=== PATIENT | male | born 1970 | race Hispanic/Latino ===

== ENCOUNTER 2019-05-14 10:41 | Emergency (ER) | payer OTHER ==
[2019-05-14 11:21] LABS: WHITE BLOOD COUNT (AUTO) 5.2 K/uL (4.8-10.8)
[2019-05-14 11:22] LABS: EOSINOPHILS % (AUTO) 1.7 % (0.0-8.0); HEMATOCRIT 44.1 % (42-54); LYMPHOCYTES % (AUTO) 23.3 % (21.0-51.0); MEAN CORPUSCULAR HEMOGLOBIN 31.1 pg (27.0-33.0); MEAN CORPUSCULAR HGB CONC 34.9 g/dL (32.0-36.0); MEAN CORPUSCULAR VOLUME 89.2 fL (79-99); MONOCYTES % (AUTO) 7.4 % (3.0-13.0); NEUTROPHILS % (AUTO) 66.6 % (40.0-77.0); PLATELET COUNT (AUTO) 185 K/uL (130-400); RED BLOOD CELL COUNT(AUTO) 4.95 MIL/uL (4.50-6.20); RED CELL DISTRIBUTION WIDTH 13.3 % (11.0-15.5)
[2019-05-14] MEDS ORDERED: SODIUM CHLORIDE 0.9% 1000ML 1,000 ML IV ONE (11:24)
[2019-05-14 11:48] LABS: ALBUMIN 3.5 g/dL (3.5-5.0); BILIRUBIN,TOTAL 0.6 mg/dL (0.2-1.0); CREATININE 0.9 mg/dL (0.5-1.5); CRP QUANTITATIVE 6.5 mg/L (0.00-9.0); POTASSIUM 4.6 mmol/L (3.5-5.1); TOTAL PROTEIN, SERUM 7.3 g/dL (6.0-8.3)
[2019-05-14] MEDS ORDERED: INSULIN HUMULIN R 100 UNIT/ML 3ML ONE (12:24)
[2019-05-14 12:29] LABS: ERYTHROCYTE SEDIMENTATION RATE 9 MM/HR (0-15)
[2019-05-14 12:53] LABS: APPEARANCE,URINE Clear (CLEAR); BILIRUBIN,URINE Negative (NEGATIVE); COLOR,URINE Yellow (YELLOW); GLUCOSE, URINE (UA) >=1000 mg/dL (NEGATIVE); KETONES,URINE Negative (NEGATIVE); LEUKOCYTE ESTERASE ,URINE Negative (NEGATIVE); NITRATE,URINE Negative (NEGATIVE); OCCULT BLOOD,URINE Negative (NEGATIVE); PROTEIN,URINE Negative (NEGATIVE)
[2019-05-14 12:57] LABS: BACTERIA,URINE Rare /HPF (None Seen); RBC,URINE 0-1 /HPF (0-1); SQUAMOUS EPITHELIAL CELL,UR Rare /HPF (0-2); WBC,URINE 0-1 /HPF (0-1)
[2019-05-14] MEDS ORDERED: CLINDAMYCIN 600 MG/D5% WATER 50 ML IV ONE (13:06)
[2019-05-14] MEDS ORDERED: SODIUM CHLORIDE 0.9% 50 ML IV ONE (13:06)
[2019-05-14] MEDS ORDERED: CEFTRIAXONE SODIUM 1 GM ONE (13:06)
== END 2019-05-14 14:55 | disposition home or self-care (01) ==
LOC: EDH 10:41
DX: L03.116 Cellulitis of left lower limb (principal); E13.65 Other specified diabetes mellitus with hyperglycemia; I10 Essential (primary) hypertension; E78.00 Pure hypercholesterolemia, unspecified; Z87.891 Personal history of nicotine dependence
CPT/HCPCS: 36415; 73660; 80053; 81001; 82010; 82948 ×3; 85025; 85651; 86140; 87040 ×2; 96361; 96365; 96375; 99285; J0696; J1815; J3490; J7030

== ENCOUNTER 2022-01-07 19:31 | Inpatient (IN) | payer OTHER ==
[~2022-01-07] VITALS: Ht 182.9 cm; Wt 118.3 kg
[2022-01-07] MEDS ORDERED: 0.9%NACL 1000ML 1,000 ML IV ONE (20:00)
[2022-01-07] MEDS ORDERED: VANCOMYCIN 1G VIAL IVPB ONE (20:00)
[2022-01-07] MEDS ORDERED: ZOSYN 3.375GM +NS 50ML IV SCH (20:00)
[2022-01-07] MEDS ORDERED: VANCOMYCIN 1G/250ML KIT 250 ML IV ONE (20:22)
[2022-01-07 20:26] LABS: BASOPHILS % (AUTO) 0.5 % (0.0-5.0); EOSINOPHILS % (AUTO) 0.9 % (0.0-8.0); LYMPHOCYTES % (AUTO) 20.4 % (21.0-51.0); MEAN CORPUSCULAR HEMOGLOBIN 29.1 pg (27.0-33.0); MEAN CORPUSCULAR HGB CONC 35.1 g/dL (32.0-36.0); NEUTROPHILS % (AUTO) 67.8 % (40.0-77.0); PLATELET COUNT (AUTO) 195 K/uL (130-400); WHITE BLOOD COUNT (AUTO) 10.2 K/uL (4.8-10.8)
[2022-01-07 20:40] LABS: CREATININE 0.9 mg/dL (0.5-1.5); POTASSIUM 3.7 mmol/L (3.5-5.1)
[2022-01-07 20:44] LABS: ALBUMIN 3.2 g/dL (3.5-5.0); BILIRUBIN,TOTAL 1.1 mg/dL (0.2-1.0); CRP QUANTITATIVE 116.5 mg/L (0.00-9.0); TOTAL PROTEIN, SERUM 7.1 g/dL (6.0-8.3)
[2022-01-07 21:47] LABS: ERYTHROCYTE SEDIMENTATION RATE 28 MM/HR (0-20)
[2022-01-07] MEDS ORDERED: ATOR10 PO (22:22)
[2022-01-07] MEDS ORDERED: LISI1TAB53 PO (22:22)
[2022-01-07] MEDS ORDERED: METF-446 PO (22:22)
[2022-01-07] MEDS ORDERED: GEMF600T89 PO (22:22)
[2022-01-07] MEDS ORDERED: INSU3INS5 SQ (22:22)
[2022-01-07] MEDS ORDERED: SITA50TA PO (22:22)
[2022-01-07] MEDS ORDERED: MAG/ALUM/SIMETH 30 ML UDCUP PO PRN (23:00)
[2022-01-07] MEDS ORDERED: VANCOMYCIN PROTOCOL PER PHARMACY IV PRN (23:00)
[2022-01-07] MEDS ORDERED: LACTULOSE 20 GM/30 ML UDCUP PO PRN (23:00)
[2022-01-07] MEDS ORDERED: MORPHINE 4 MG SYG IV PRN (23:00)
[2022-01-07] MEDS ORDERED: ACETAMINOPHEN WITH CODEINE 1 TAB TAB PO PRN (23:00)
[2022-01-07] MEDS ORDERED: DIPHENHYDRAMINE HCL 25 MG CAPSULE PO PRN (23:00)
[2022-01-07] MEDS ORDERED: ONDANSETRON 4MG INJ IV PRN (23:00)
[2022-01-07] MEDS ORDERED: DEXTROSE 50%-WATER 50 ML DISP.SYRIN IV PRN (23:00)
[2022-01-07] MEDS ORDERED: GLUCAGON 1MG KIT 1 MG ML IM PRN (23:00)
[2022-01-07] MEDS ORDERED: ACETAMINOPHEN 325 MG TAB PO PRN (23:00)
[2022-01-07] MEDS ORDERED: NITROGLYCERIN 0.4 MG SL TAB SL PRN (23:00)
[2022-01-07] MEDS: 0.9%NACL 1000ML 1,000 ML IV SCH (23:15)
[2022-01-07 23:17] LABS: HEMOGLOBIN A1C 12.4 % (4.0-6.0)
[2022-01-07 23:40] LABS: THYROID STIMULATING HORMONE 5.16 uIU/mL (0.36-3.74)
[2022-01-08 02:30] VITALS: BP 115/86
[2022-01-08 04:00] VITALS: BP 114/68
[2022-01-08] MEDS: INSULIN HUMULIN R 100 UNIT/ML 3ML SQ SCH ×4 (06:09→22:58)
[2022-01-08 07:30] VITALS: BP 121/72
[2022-01-08] MEDS ORDERED: COMPOUND IV REFRIGERATED 1 EACH IVSOLN MISC PRN (07:30)
[2022-01-08] MEDS: LISINOPRIL 20 MG TABLET PO SCH (08:37)
[2022-01-08] MEDS: LINAGLIPTIN 5 MG TABLET PO SCH (08:37)
[2022-01-08] MEDS: FAMOTIDINE 20MG VIAL IV SCH ×2 (08:37→20:42)
[2022-01-08] MEDS: HYDROCHLOROTHIAZIDE 25 MG TABLET PO SCH (08:37)
[2022-01-08] MEDS: ENOXAPARIN SODIUM 40 MG/0.4 ML SYRINGE SQ SCH (08:38)
[2022-01-08] MEDS: METFORMIN HCL 500 MG TABLET PO SCH ×2 (08:38→17:51)
[2022-01-08] MEDS ORDERED: NON-FORMULARY MEDICATION 1 EACH (Lisinopril/Hydrochlorothiazide (Lisinopril-Hctz 20-25 mg PO SCH (09:00)
[2022-01-08] MEDS: VANCOMYCIN 1.5GM/NS 250ML IV SCH ×4 (09:06→20:42)
[2022-01-08] MEDS: GEMFIBROZIL 600 MG TABLET PO SCH ×2 (09:06→20:42)
[2022-01-08 11:10] VITALS: BP 141/72
[2022-01-08] MEDS: ZOSYN 3.375GM+NS 50ML 50 ML IV SCH ×2 (12:20→22:54)
[2022-01-08 15:10] VITALS: BP 142/87
[2022-01-08] MEDS ORDERED: GADOTERATE MEGLUMINE 10 MMOL/20 ML VIAL IV ONE (18:09)
[2022-01-08 20:00] VITALS: BP 158/88
[2022-01-08] MEDS ORDERED: ATORVASTATIN 10 MG TABLET PO SCH (21:00)
[2022-01-08] MEDS: 0.9%NACL 1000ML 1,000 ML IV SCH (22:54)
[2022-01-09] VITALS: BP 113/61
[2022-01-09 04:00] VITALS: BP 121/69
[2022-01-09] MEDS: ZOSYN 3.375GM+NS 50ML 50 ML IV SCH ×3 (05:31→21:33)
[2022-01-09] MEDS: INSULIN HUMULIN R 100 UNIT/ML 3ML SQ SCH ×5 (06:20→21:45)
[2022-01-09 07:05] VITALS: BP 126/73
[2022-01-09] MEDS: LISINOPRIL 20 MG TABLET PO SCH (08:11)
[2022-01-09] MEDS: HYDROCHLOROTHIAZIDE 25 MG TABLET PO SCH (08:11)
[2022-01-09] MEDS: METFORMIN HCL 500 MG TABLET PO SCH (08:11)
[2022-01-09] MEDS: LINAGLIPTIN 5 MG TABLET PO SCH (08:11)
[2022-01-09] MEDS: FAMOTIDINE 20MG VIAL IV SCH ×2 (08:11→21:34)
[2022-01-09] MEDS: VANCOMYCIN 1.5GM/NS 250ML IV SCH ×4 (08:12→21:46)
[2022-01-09] MEDS: ENOXAPARIN SODIUM 40 MG/0.4 ML SYRINGE SQ SCH (08:12)
[2022-01-09] MEDS: GEMFIBROZIL 600 MG TABLET PO SCH ×2 (08:26→21:34)
[2022-01-09 10:02] LABS: BASOPHILS % (AUTO) 0.6 % (0.0-5.0); EOSINOPHILS % (AUTO) 1.5 % (0.0-8.0); HEMATOCRIT 37.1 % (42-54); LYMPHOCYTES % (AUTO) 15.3 % (21.0-51.0); MEAN CORPUSCULAR HEMOGLOBIN 29.6 pg (27.0-33.0); MEAN CORPUSCULAR HGB CONC 34.5 g/dL (32.0-36.0); MEAN CORPUSCULAR VOLUME 85.9 fL (79-99); MONOCYTES % (AUTO) 9.9 % (3.0-13.0); NEUTROPHILS % (AUTO) 72.4 % (40.0-77.0); PLATELET COUNT (AUTO) 169 K/uL (130-400); RED BLOOD CELL COUNT(AUTO) 4.32 MIL/uL (4.50-6.20); RED CELL DISTRIBUTION WIDTH 11.9 % (11.0-15.5); WHITE BLOOD COUNT (AUTO) 6.8 K/uL (4.8-10.8)
[2022-01-09 10:09] LABS: CREATININE 0.8 mg/dL (0.5-1.5); CRP QUANTITATIVE 66.6 mg/L (0.00-9.0)
[2022-01-09 10:55] VITALS: BP 142/88
[2022-01-09 11:06] LABS: ERYTHROCYTE SEDIMENTATION RATE 55 MM/HR (0-20)
[2022-01-09] MEDS ORDERED: INSULIN GLARGINE 100 UNITS/ML 10 ML VIAL SQ ONE (13:30)
[2022-01-09] MEDS ORDERED: ASPIRIN 81 MG EC TAB PO ONE (13:30)
[2022-01-09 15:00] VITALS: BP 137/80
[2022-01-09 20:00] VITALS: BP 125/73
[2022-01-09] MEDS: ATORVASTATIN 10 MG TABLET PO SCH (21:34)
[2022-01-10] VITALS (7 sets, daily range): BP systolic 120–157; BP diastolic 66–91
[2022-01-10] MEDS: INSULIN HUMULIN R 100 UNIT/ML 3ML SQ SCH ×7 (06:21→21:50)
[2022-01-10] MEDS: VANCOMYCIN 1.5GM/NS 250ML IV SCH ×6 (06:24→20:55)
[2022-01-10] MEDS: ZOSYN 3.375GM+NS 50ML 50 ML IV SCH ×3 (06:24→21:45)
[2022-01-10] MEDS: 0.9%NACL 1000ML 1,000 ML IV SCH ×2 (06:25→17:39)
[2022-01-10 08:24] LABS: CREATININE 0.7 mg/dL (0.5-1.5); POTASSIUM 3.9 mmol/L (3.5-5.1)
[2022-01-10] MEDS: ENOXAPARIN SODIUM 40 MG/0.4 ML SYRINGE SQ SCH (09:04)
[2022-01-10] MEDS: FAMOTIDINE 20MG VIAL IV SCH ×2 (09:04→20:44)
[2022-01-10] MEDS ORDERED: IOHEXOL 350 MG/ML 100ML INFUS..BTL IV ONE (09:32)
[2022-01-10] MEDS ORDERED: IOHEXOL-350 75 ML VIAL IV ONE (10:30)
[2022-01-10] MEDS ORDERED: IOHEXOL-350 50ML VIAL IV ONE (10:31)
[2022-01-10] MEDS: HYDROCHLOROTHIAZIDE 25 MG TABLET PO SCH (11:03)
[2022-01-10] MEDS: LINAGLIPTIN 5 MG TABLET PO SCH (11:04)
[2022-01-10] MEDS: ASPIRIN 81 MG EC TAB PO SCH (11:04)
[2022-01-10] MEDS: LISINOPRIL 20 MG TABLET PO SCH (11:05)
[2022-01-10] MEDS: GEMFIBROZIL 600 MG TABLET PO SCH ×2 (11:05→20:44)
[2022-01-10] MEDS: ATORVASTATIN 10 MG TABLET PO SCH (20:45)
[2022-01-11] VITALS (12 sets, daily range): BP systolic 121–157; BP diastolic 76–100
[2022-01-11] MEDS: ZOSYN 3.375GM+NS 50ML 50 ML IV SCH ×3 (04:45→20:35)
[2022-01-11] MEDS: VANCOMYCIN 1.5GM/NS 250ML IV SCH ×6 (04:47→20:34)
[2022-01-11] MEDS: INSULIN HUMULIN R 100 UNIT/ML 3ML SQ SCH ×7 (06:51→20:50)
[2022-01-11 07:13] LABS: BASOPHILS % (AUTO) 0.7 % (0.0-5.0); HEMATOCRIT 37.2 % (42-54); LYMPHOCYTES % (AUTO) 19.3 % (21.0-51.0); MEAN CORPUSCULAR HEMOGLOBIN 29.2 pg (27.0-33.0); MEAN CORPUSCULAR HGB CONC 34.4 g/dL (32.0-36.0); MEAN CORPUSCULAR VOLUME 84.7 fL (79-99); MONOCYTES % (AUTO) 13.7 % (3.0-13.0); NEUTROPHILS % (AUTO) 63.9 % (40.0-77.0); PLATELET COUNT (AUTO) 188 K/uL (130-400); RED BLOOD CELL COUNT(AUTO) 4.39 MIL/uL (4.50-6.20); RED CELL DISTRIBUTION WIDTH 11.9 % (11.0-15.5); WHITE BLOOD COUNT (AUTO) 5.6 K/uL (4.8-10.8)
[2022-01-11 07:20] LABS: CREATININE 0.7 mg/dL (0.5-1.5); POTASSIUM 3.7 mmol/L (3.5-5.1)
[2022-01-11] MEDS ORDERED: IOHEXOL 350 MG/ML 100ML INFUS..BTL IV ONE (09:44)
[2022-01-11] MEDS ORDERED: MIDAZOLAM HCL 1 MG/ML 2ML VIAL ONE (09:45)
[2022-01-11] MEDS ORDERED: FENTANYL CITRATE PF 50 MCG/1 ML 2ML VIAL ONE (09:45)
[2022-01-11] MEDS ORDERED: IODIXANOL 320 MG/ML 100 ML VIAL ONE (09:46)
[2022-01-11] MEDS ORDERED: NITROGLYCERIN 50MG VIAL ONE (09:56)
[2022-01-11] MEDS ORDERED: HEPARIN 10,000 UNIT/10ML (1,000 UNIT/ML) VIAL ONE (10:39)
[2022-01-11] MEDS ORDERED: SODIUM BICARB 50MEQ 50ML VIAL 50 ML ONE (10:42)
[2022-01-11] MEDS ORDERED: 0.9%NACL 1000ML 1,000 ML IV SCH (11:30)
[2022-01-11] MEDS: LINAGLIPTIN 5 MG TABLET PO SCH (13:29)
[2022-01-11] MEDS: GEMFIBROZIL 600 MG TABLET PO SCH ×2 (13:30→20:35)
[2022-01-11] MEDS: LISINOPRIL 20 MG TABLET PO SCH (13:30)
[2022-01-11] MEDS: HYDROCHLOROTHIAZIDE 25 MG TABLET PO SCH (13:30)
[2022-01-11] MEDS: ASPIRIN 81 MG EC TAB PO SCH (13:30)
[2022-01-11] MEDS: FAMOTIDINE 20MG VIAL IV SCH ×2 (13:32→20:34)
[2022-01-11] MEDS: ENOXAPARIN SODIUM 40 MG/0.4 ML SYRINGE SQ SCH (13:34)
[2022-01-11] MEDS: ATORVASTATIN 10 MG TABLET PO SCH (20:35)
[2022-01-12] VITALS: BP 144/81
[2022-01-12 04:00] VITALS: BP 123/66
[2022-01-12] MEDS: VANCOMYCIN 1.5GM/NS 250ML IV SCH ×4 (05:30→12:08)
[2022-01-12] MEDS: ZOSYN 3.375GM+NS 50ML 50 ML IV SCH ×3 (05:30→21:31)
[2022-01-12] MEDS: INSULIN HUMULIN R 100 UNIT/ML 3ML SQ SCH ×7 (05:55→21:42)
[2022-01-12 08:00] VITALS: BP 129/76
[2022-01-12] MEDS: LINAGLIPTIN 5 MG TABLET PO SCH (08:10)
[2022-01-12] MEDS: ASPIRIN 81 MG EC TAB PO SCH (08:10)
[2022-01-12] MEDS: HYDROCHLOROTHIAZIDE 25 MG TABLET PO SCH (08:10)
[2022-01-12] MEDS: LISINOPRIL 20 MG TABLET PO SCH (08:10)
[2022-01-12] MEDS: FAMOTIDINE 20MG VIAL IV SCH ×2 (08:11→21:31)
[2022-01-12] MEDS: ENOXAPARIN SODIUM 40 MG/0.4 ML SYRINGE SQ SCH (08:16)
[2022-01-12] MEDS: GEMFIBROZIL 600 MG TABLET PO SCH ×2 (09:19→21:30)
[2022-01-12 12:00] VITALS: BP 133/91
[2022-01-12 16:00] VITALS: BP 130/87
[2022-01-12 18:28] LABS: APPEARANCE,URINE CLEAR (CLEAR); BILIRUBIN,URINE SMALL (NEGATIVE); COLOR,URINE YELLOW (YELLOW); GLUCOSE, URINE (UA) >=1000 mg/dL (NEGATIVE); KETONES,URINE 5 mg/dL (NEGATIVE); LEUKOCYTE ESTERASE ,URINE NEGATIVE (NEGATIVE); NITRATE,URINE NEGATIVE (NEGATIVE); OCCULT BLOOD,URINE TRACE-LYSED (NEGATIVE); PH,URINE 6.5 (5.0-8.0); PROTEIN,URINE 100 mg/dL (NEGATIVE)
[2022-01-12 18:43] LABS: BACTERIA,URINE Rare /HPF (None Seen); RBC,URINE 0-1 /HPF (0-1); SQUAMOUS EPITHELIAL CELL,UR None Seen /HPF (0-2); WBC,URINE 0-1 /HPF (0-1)
[2022-01-12 20:00] VITALS: BP 146/87
[2022-01-12] MEDS: ATORVASTATIN 10 MG TABLET PO SCH (21:30)
[2022-01-12] MEDS: INSULIN GLARGINE 100 UNITS/ML 10 ML VIAL SQ SCH (21:44)
[2022-01-13] VITALS (10 sets, daily range): BP systolic 113–175; BP diastolic 58–100
[2022-01-13] MEDS: ZOSYN 3.375GM+NS 50ML 50 ML IV SCH ×2 (05:10→13:28)
[2022-01-13 05:14] LABS: BASOPHILS % (AUTO) 0.5 % (0.0-5.0); EOSINOPHILS % (AUTO) 2.4 % (0.0-8.0); HEMATOCRIT 38.5 % (42-54); LYMPHOCYTES % (AUTO) 18.1 % (21.0-51.0); MEAN CORPUSCULAR HEMOGLOBIN 28.6 pg (27.0-33.0); MEAN CORPUSCULAR HGB CONC 33.8 g/dL (32.0-36.0); MEAN CORPUSCULAR VOLUME 84.8 fL (79-99); MONOCYTES % (AUTO) 12.2 % (3.0-13.0); NEUTROPHILS % (AUTO) 66.3 % (40.0-77.0); PLATELET COUNT (AUTO) 253 K/uL (130-400); RED BLOOD CELL COUNT(AUTO) 4.54 MIL/uL (4.50-6.20); RED CELL DISTRIBUTION WIDTH 11.7 % (11.0-15.5); WHITE BLOOD COUNT (AUTO) 8.3 K/uL (4.8-10.8)
[2022-01-13] MEDS: INSULIN HUMULIN R 100 UNIT/ML 3ML SQ SCH ×7 (05:24→21:52)
[2022-01-13 05:33] LABS: CREATININE 1.1 mg/dL (0.5-1.5); CRP QUANTITATIVE 61.4 mg/L (0.00-9.0); POTASSIUM 3.5 mmol/L (3.5-5.1)
[2022-01-13] MEDS ORDERED: LIDOCAINE HCL 1% MDV 50ML VIAL ONE (05:56)
[2022-01-13] MEDS ORDERED: BUPIVACAINE/PF 0.5% 30ML VIAL ONE (05:56)
[2022-01-13 06:32] LABS: ERYTHROCYTE SEDIMENTATION RATE 70 MM/HR (0-20)
[2022-01-13] MEDS ORDERED: MIDAZOLAM HCL 1 MG/ML 2ML VIAL ONE (06:33)
[2022-01-13] MEDS ORDERED: PROPOFOL 10 MG/ML 20ML VIAL IV ONE (06:33)
[2022-01-13] MEDS ORDERED: FENTANYL CITRATE PF 50 MCG/1 ML 2ML VIAL ONE (06:33)
[2022-01-13] MEDS: ENOXAPARIN SODIUM 40 MG/0.4 ML SYRINGE SQ SCH (09:00)
[2022-01-13] MEDS: ASPIRIN 81 MG EC TAB PO SCH (09:19)
[2022-01-13] MEDS: LISINOPRIL 20 MG TABLET PO SCH (09:19)
[2022-01-13] MEDS: LINAGLIPTIN 5 MG TABLET PO SCH (09:19)
[2022-01-13] MEDS: GEMFIBROZIL 600 MG TABLET PO SCH ×2 (09:19→21:55)
[2022-01-13] MEDS: HYDROCHLOROTHIAZIDE 25 MG TABLET PO SCH (09:19)
[2022-01-13] MEDS: FAMOTIDINE 20MG VIAL IV SCH ×2 (09:19→21:56)
[2022-01-13] MEDS: GABAPENTIN 300 MG CAPSULE PO SCH ×2 (11:28→21:55)
[2022-01-13] MEDS: INSULIN GLARGINE 100 UNITS/ML 10 ML VIAL SQ SCH (21:52)
[2022-01-13] MEDS: ATORVASTATIN 10 MG TABLET PO SCH (21:55)
[2022-01-13] MEDS: GUAIFENESIN-DM 200/20 MG 10 ML PO PRN (22:06)
[2022-01-14 03:42] VITALS: BP 97/62
[2022-01-14 05:17] LABS: BASOPHILS % (AUTO) 0.8 % (0.0-5.0); EOSINOPHILS % (AUTO) 3.5 % (0.0-8.0); LYMPHOCYTES % (AUTO) 20.2 % (21.0-51.0); MEAN CORPUSCULAR HEMOGLOBIN 28.9 pg (27.0-33.0); MEAN CORPUSCULAR HGB CONC 33.8 g/dL (32.0-36.0); MEAN CORPUSCULAR VOLUME 85.5 fL (79-99); MONOCYTES % (AUTO) 15.4 % (3.0-13.0); NEUTROPHILS % (AUTO) 59.9 % (40.0-77.0); PLATELET COUNT (AUTO) 228 K/uL (130-400); RED BLOOD CELL COUNT(AUTO) 4.56 MIL/uL (4.50-6.20); RED CELL DISTRIBUTION WIDTH 11.7 % (11.0-15.5); WHITE BLOOD COUNT (AUTO) 6.4 K/uL (4.8-10.8)
[2022-01-14 05:24] LABS: CREATININE 0.7 mg/dL (0.5-1.5); POTASSIUM 3.8 mmol/L (3.5-5.1)
[2022-01-14] MEDS: INSULIN HUMULIN R 100 UNIT/ML 3ML SQ SCH ×4 (06:57→12:30)
[2022-01-14 07:00] VITALS: BP 123/80
[2022-01-14] MEDS ORDERED: AEC81 PO (07:25)
[2022-01-14] MEDS ORDERED: LEVOFLOXACIN 750 MG TABLET PO SCH (09:00)
[2022-01-14] MEDS: FAMOTIDINE 20MG VIAL IV SCH (09:42)
[2022-01-14] MEDS: HYDROCHLOROTHIAZIDE 25 MG TABLET PO SCH (09:42)
[2022-01-14] MEDS: GEMFIBROZIL 600 MG TABLET PO SCH (09:42)
[2022-01-14] MEDS: ASPIRIN 81 MG EC TAB PO SCH (09:42)
[2022-01-14] MEDS: GABAPENTIN 300 MG CAPSULE PO SCH (09:42)
[2022-01-14] MEDS: ENOXAPARIN SODIUM 40 MG/0.4 ML SYRINGE SQ SCH (09:43)
[2022-01-14] MEDS: LISINOPRIL 20 MG TABLET PO SCH (09:43)
[2022-01-14] MEDS: LINAGLIPTIN 5 MG TABLET PO SCH (09:49)
[2022-01-14] MEDS: GUAIFENESIN-DM 200/20 MG 10 ML PO PRN (09:53)
[2022-01-14] MEDS ORDERED: INSU100V3 SQ (10:12)
[2022-01-14] MEDS ORDERED: LISI20TA24 PO (10:12)
[2022-01-14] MEDS ORDERED: INSLAN SQ (10:12)
[2022-01-14] MEDS ORDERED: SYRI-1628 MC (10:12)
[2022-01-14] MEDS ORDERED: LEVO750T46 PO (10:12)
[2022-01-14] MEDS ORDERED: GABA300C PO (10:12)
[2022-01-14] MEDS ORDERED: ATOR10 PO (10:12)
[2022-01-14 11:00] VITALS: BP 129/88
[2022-01-14] MEDS ORDERED: INSULIN GLARGINE 100 UNITS/ML 10 ML VIAL SQ SCH (21:00)
== END 2022-01-14 12:49 | disposition home or self-care (01) | DRG 617 ==
LOC: EDH 19:31 → EDHIP 19:32 → 3DH 01-08 02:08
PROVIDERS: ADMIT Internal Medicine; ATTEND Internal Medicine
PROC: B4101ZZ Fluoroscopy of Abdominal Aorta using Low Osmolar Contrast (ICD-10-PCS; 2022-01-11)
PROC: B41F1ZZ Fluoroscopy of Right Lower Extremity Arteries using Low Osmolar Contrast (ICD-10-PCS; 2022-01-11)
PROC: 0Y6V0Z0 Detachment at Right 4th Toe, Complete, Open Approach (ICD-10-PCS; principal; 2022-01-13 07:00)
DX: E11.69 Type 2 diabetes mellitus with other specified complication (principal); L03.115 Cellulitis of right lower limb; E11.52 Type 2 diabetes mellitus with diabetic peripheral angiopathy with gangrene; M86.8X7 Other osteomyelitis, ankle and foot; E11.621 Type 2 diabetes mellitus with foot ulcer; L97.519 Non-pressure chronic ulcer of other part of right foot with unspecified severity; E78.5 Hyperlipidemia, unspecified; I10 Essential (primary) hypertension; E11.42 Type 2 diabetes mellitus with diabetic polyneuropathy; E66.01 Morbid (severe) obesity due to excess calories; E78.00 Pure hypercholesterolemia, unspecified; Z68.35 Body mass index [BMI] 35.0-35.9, adult; Z87.891 Personal history of nicotine dependence
CPT/HCPCS: 36247; 36415; 73660; 73720; 75635; 75710; 75716; 80048; 80053; 80202; 81001; 82010; 82948; 83036; 83605; 84145; 84443; 85025; 85651; 86140; 87040; 87070; 87076; 87077; 87186; 93925; 93971; 97039; 99156; 99157; C1760; C1894; G0378; J1644; J1650; J1815; J2250; J2543; J2704; J3010; J3370; J3490; J7030; J7050; Q0163; Q9967

== ENCOUNTER → 2022-01-20 | Outpatient (CLI) | payer OTHER, SELFPAY ==
[~2022-01-20] MED LIST: AEC81 PO; ATOR10 PO; GABA300C PO; GEMF600T89 PO; INSLAN SQ; INSU100V3 SQ; LEVO750T46 PO; LISI1TAB53 PO; LISI20TA24 PO; METF-446 PO; SITA50TA PO; SYRI-1628 MC
== END | disposition home or self-care (01) ==
LOC: WHH 09:57
PROVIDERS: ATTEND Podiatrist Foot & Ankle Surgery
DX: T87.89 Other complications of amputation stump (principal); E11.621 Type 2 diabetes mellitus with foot ulcer; L97.512 Non-pressure chronic ulcer of other part of right foot with fat layer exposed; E11.52 Type 2 diabetes mellitus with diabetic peripheral angiopathy with gangrene; I96 Gangrene, not elsewhere classified; E11.69 Type 2 diabetes mellitus with other specified complication; M86.8X7 Other osteomyelitis, ankle and foot; E11.42 Type 2 diabetes mellitus with diabetic polyneuropathy; I10 Essential (primary) hypertension; E78.5 Hyperlipidemia, unspecified; E78.00 Pure hypercholesterolemia, unspecified; E66.01 Morbid (severe) obesity due to excess calories; Z68.33 Body mass index [BMI] 33.0-33.9, adult; Z87.891 Personal history of nicotine dependence; Z79.84 Long term (current) use of oral hypoglycemic drugs; Z79.899 Other long term (current) drug therapy; Y83.5 Amputation of limb(s) as the cause of abnormal reaction of the patient, or of later complication, without mention of misadventure at the time of the procedure; Y92.238 Other place in hospital as the place of occurrence of the external cause
CPT/HCPCS: 99215; A4450; A6209; G0463

== ENCOUNTER 2022-03-15 17:58 | Emergency (ER) | payer OTHER, SELFPAY ==
[~2022-03-15] VITALS: Ht 182.9 cm; Wt 113.4 kg
[2022-03-15 18:03] VITALS: BP 116/73
[2022-03-15] MEDS ORDERED: BACITRACIN 28.4 GM OINT TP ONE (20:00)
[2022-03-15] MEDS ORDERED: CEFTRIAXONE 1G VIAL IM ONE (20:00)
[2022-03-15] MEDS ORDERED: CEFTRIAXONE 1G VIAL ONE (20:19)
[2022-03-15] MEDS ORDERED: CLIN-141 PO (20:43)
[2022-03-15] MEDS ORDERED: TETANUS/DIPHTHERIA TOXOID [ADULT] 0.5 ML VIAL IM ONE ×2 (20:53→21:30)
== END 2022-03-15 21:12 | disposition home or self-care (01) ==
LOC: EDH 17:58
DX: E11.621 Type 2 diabetes mellitus with foot ulcer (principal); E78.00 Pure hypercholesterolemia, unspecified; Z79.82 Long term (current) use of aspirin; Z79.84 Long term (current) use of oral hypoglycemic drugs; Z79.899 Other long term (current) drug therapy
CPT/HCPCS: 73620; 90471; 90714; 96372; 99284; J0696

== ENCOUNTER 2025-07-25 09:34 | Emergency (ER) | payer SELFPAY ==
[~2025-07-25] VITALS: Ht 182.9 cm; Wt 127.0 kg
[~2025-07-25 09:34] MED LIST changes: +AMOX500C2 PO; -ATOR10 PO; +ATOR20TA65 PO; -GABA300C PO; -LEVO750T46 PO; -LISI20TA24 PO
--- NOTE | 2025-07-25 09:47 | ERN ---
General Chief Complaint: Nausea,Vomiting,Diarrhea Stated Complaint: NAUSEA/VOMITING/DIZZY Time Seen by MD: 09:37 Source: patient History of Present Illness Initial Comments Patient is a 64-year-old gentleman coming in complaining of abdominal pain. Jaxon bravo states that he has been evaluated by ultrasound was recommended and performed. He states the the some abnormality ultrasound. So states that a couple of the has a started presenting with increased abdominal pain nauseousness and vomiting. In his is a states that every time he eats he vomits. Allergies: Coded Allergies: No Known Drug Allergies (Verified Allergy, 01/02/14) Home Meds Active Scripts Syringe-Needle,Insulin,0.5 ml ([place] Insulin Syringe) 1 Each Disp.syrin, EACH MC QID, #1000 3 Refills Prov:MAGDALENA JALLOH Jr., MD 04/21/22 Insulin Regular, Human (Humulin R) 100 Unit/1 Ml Vial, 16 UNIT SQ TIDAC for 30 Days, #30 VIAL 6 Refills Prov:MAGDALENA JALLOH Jr., MD 04/21/22 Insulin Glargine,Hum.rec.anlog (Lantus) 100 Units/Ml Inj, 30 UNITS SQ HS for 30 Days, #30 DAYS 6 Refills Prov:MAGDALENA JALLOH Jr., MD 04/21/22 Atorvastatin Calcium (Atorvastatin Calcium) 20 Mg Tablet, 20 MG PO HS for 90 Days, #90 TAB Prov:MAGDALENA JALLOH Jr., MD 04/21/22 Aspirin (ASPIRIN 81 MG ECTAB) 81 Mg Ectab, 81 MG PO DAILY for 90 Days, #90 TAB.EC Prov:MAGDALENA JALLOH Jr., MD 04/21/22 Amoxicillin (Amoxicillin) 500 Mg Capsule, 500 MG PO Q8H for 14 Days, #42 CAP Prov:MAGDALENA JALLOH Jr., MD 04/21/22 Reported Medications Metformin HCl (Metformin HCl) 1,000 Mg Tablet, 1000 MG PO BID, TAB 04/15/22 Sitagliptin Phosphate (Januvia) 50 Mg Tablet, 50 MG PO DAILY, TAB 04/15/22 Gemfibrozil (Gemfibrozil) 600 Mg Tablet, 600 MG PO BID, TAB 04/15/22 Lisinopril/Hydrochlorothiazide (Lisinopril-Hctz 20-25 mg Tab) 1 Each Tablet, 1 EACH PO DAILY, TAB 04/15/22 Past Medical History Past Medical History: Hypertension Past Surgical History: Unknown Surgical History Other: RT 4TH TOE AMPUTATION 5 MOS AGO ROS Dictation CONSTITUTIONAL: No chills, no fever, no weakness, no diaphoresis, no malaise. HEAD/FACE: No signs of trauma. EENT: No eye pain, no blurred vision, no tearing, no double vision, no ear pain, no ear discharge, no nose pain, no nasal congestion, no throat pain, no throat swelling, no mouth pain. RESPIRATORY: No cough, no orthopnea, no SOB, no stridor, no wheezing. CARDIOVASCULAR: No chest pain, no edema, no palpitations, no syncope. GASTROINTESTINAL/ABDOMINAL: abdominal pain, no constipation, no diarrhea, nausea, vomiting. GENITOURINARY: No abnormal discharge, no dysuria, no frequent urination, no hematuria. No complaints of pain in the genitals. MUSCULOSKELETAL: No back pain, no gout, no joint pain, no joint swelling, no muscle pain, no muscle stiffness, no neck pain. INTEGUMENTARY: No change in color, no change in hair/nails, no dryness, no lesion, no lumps, no rash. NEUROLOGICAL/PSYCH: No anxiety, not depressed, no emotional problem, no headache, no numbness, no pre-existing deficit, no history of seizures, no tremors, no weakness. HEMATOLOGIC/LYMPHATIC: Not anemic, no history of blood clots, no apparent bleeding, no bruising, glands not swollen. All Systems Negative, Except as Noted. Physical Exam Physical Exam Dictation VITAL SIGNS: Reviewed. GENERAL APPEARANCE: Alert, oriented x3, no acute distress, obese. HEAD AND FACE: Non-traumatic. EYES: PERRL, pink conjunctivas, eyelid no trauma, anterior chamber clear. EARS: Pinnas intact and no signs of trauma or erythema. Ear canals clear and no discharge. TMs no erythema. NOSE: No discharge, no bleeding. OROPHARYNX: Mouth normal, teeth no caries, tongue pink. Pharynx clear, no erythema. Tonsils no exudates, no abscesses noted. Mucous membrane moist. NECK: Supple, non-tender, no thyromegaly, no masses, no JVD, no bruits. BREAST: Deferred. CHEST: No tenderness, no crepitus, no paradoxical movement, no retractions. LUNGS: Clear, well-ventilated, symmetric, no rales, no wheezing, no rhonchi, no stridor, good breath sounds bilaterally. HEART: Regular rate, regular rhythm, no murmur, no gallops. VASCULAR: No peripheral edema. ABDOMEN: Soft, positive bowel sounds, nondistended, no guarding, nontender, no rebound, no masses no hepatomegaly, no splenomegaly, no Thornton's sign, no hernias. RECTAL: Deferred. GENITAL: Deferred. NEUROLOGICAL: Normal speech, gross motor function intact, gross sensory function intact. MUSCULOSKELETAL: Neck nontender, full range of motion, back nontender, full range of motion. EXTREMITIES: Nontender, full range of motion. SKIN: Color pink, dry, no turgor, no rash, no lacerations, no abrasions, no contusions. LYMPHATICS: Deferred. Results Laboratory and Microbiology Lab and Micro Result Laboratory Tests Test 07/25/25 09:46 07/25/25 09:58 Urine Color YELLOW (YELLOW) Urine Appearance CLEAR (CLEAR) Urine pH 6.5 (5.0-8.0) Urine Specific [place] 1.022 (1.001-1.031) Urine Protein 300 mg/dL (NEGATIVE) H Urine Glucose (UA) >=1000 mg/dL (NEGATIVE) H Urine Ketones NEGATIVE mg/dL (NEGATIVE) Urine Occult Blood MODERATE (NEGATIVE) H Urine Nitrate NEGATIVE (NEGATIVE) Urine Bilirubin NEGATIVE mg/dL (NEGATIVE) Urine Urobilinogen 0.2 mg/dL (0.2-1.0) Urine Leukocyte Esterase NEGATIVE Svetlana/uL Urine RBC 11-25 /HPF (0-1) H Urine WBC 6-10 /HPF (0-1) H Urine Squamous Epithelial Cells RARE /HPF (0-2) Urine Bacteria None /HPF (None Seen) Urine Hyaline Casts 2-5 /LPF (0-1 /LPF) H Sodium Level 133 mmol/L (136-145) L Potassium Level 4.5 mmol/L (3.5-5.1) Chloride Level 101 mmol/L (101-111) Carbon Dioxide Level 25 mmol/L (21-32) Blood Urea Nitrogen 18 mg/dL (7-18) Creatinine 1.8 mg/dL (0.5-1.3) H Glomerular Filtration Rate Calc 44 mL/min (>90) Random Glucose 242 mg/dL (70-105) H Total Calcium 8.2 mg/dL (8.5-10.1) L Total Bilirubin 0.4 mg/dL (0.2-1.0) Aspartate Amino Transf (AST/SGOT) 22 U/L (10-37) Alanine Aminotransferase (ALT/SGPT) 16 U/L (12-78) Alkaline Phosphatase 155 U/L (50-136) H Total Creatine Kinase 126 U/L (21-232) # Troponin I High Sensitivity 10 ng/L (4-75) Total Protein 6.2 g/dL (6.0-8.3) Albumin 1.9 g/dL (3.5-5.0) L Lipase 39 U/L (16-77) Urine Opiates Screen NEGATIVE (NEGATIVE) Urine Barbiturates Screen NEGATIVE (NEGATIVE) Urine Phencyclidine Screen NEGATIVE (NEGATIVE) Urine Amphetamines Screen NEGATIVE (NEGATIVE) Urine Benzodiazepines Screen NEGATIVE (NEGATIVE) Urine Cocaine Screen POSITIVE (NEGATIVE) H Urine Marijuana (THC) Screen NEGATIVE (NEGATIVE) White Blood Count 6.0 K/uL (4.8-10.8) Red Blood Count 3.24 MIL/uL (4.50-6.20) L Hemoglobin 9.2 g/dL (14.0-18.0) L Hematocrit 27.4 % (42-54) L Mean Corpuscular Volume 84.6 fL (79-99) Mean Corpuscular Hemoglobin 28.4 pg (27.0-33.0) Mean Corpuscular Hemoglobin Concent 33.6 g/dL (32.0-36.0) Red Cell Distribution Width 12.6 % (11.0-15.5) Platelet Count 231 K/uL (130-400) Mean Platelet Volume 10.5 fL (7.5-10.5) Immature Granulocyte % (Auto) 0.5 % (0-1) Neutrophils (%) (Auto) 72.3 % (40.0-77.0) Lymphocytes (%) (Auto) 11.3 % (21.0-51.0) L Monocytes (%) (Auto) 13.9 % (3.0-13.0) H Eosinophils (%) (Auto) 1.7 % (0.0-8.0) Basophils (%) (Auto) 0.3 % (0.0-5.0) Neutrophils # (Auto) 4.4 K/uL (1.8-7.7) Lymphocytes # (Auto) 0.7 K/uL (1.0-4.8) L Monocytes # (Auto) 0.8 K/uL (0.1-1.0) Eosinophils # (Auto) 0.10 K/uL (0.00-0.70) Basophils # (Auto) 0.02 K/uL (0.00-0.20) Absolute Immature Granulocyte (auto 0.03 K/uL (0-1) Nucleated Red Blood Cells 0.0 % (0.0-0.19) Labs Reviewed?: Yes EKG/XRAY/US/CT/MRI EKG Comment 07/25/2025 time 9:46 a.m. Ventricular rate 78 Sinus rhythm [place] [address] wave elevation or depression CT Scan Comment [place] [id number] [address] [id number] IMAGING REPORT Signed PATIENT: RUBEN FAN MR#: [id number] : 1970 SEX: M AGE: 54 LOCATION: [facility] ORDER STATUS: REG REPORT#: [id number] SERVICE [id number] REASON: ABD PAIN ORDERING PHYSICIAN: CORRINA KNOX MD PROCEDURE: ABD PEL WO - CT ABDOMEN/PELVIS W/O CONTRAST EXAM: CT Abdomen and Pelvis Without IV contrast CLINICAL HISTORY: ABD PAIN TECHNIQUE: Axial computed tomography images of the abdomen and pelvis without intravenous contrast. No sagittal or coronal reconstructions were provided. CONTRAST: No IV contrast. COMPARISON: Compared with the previous CT dated 01/10/22 FINDINGS: LUNG BASES: Left minimal pleural effusion. The right pleural space is clear. LIVER: Unremarkable. GALLBLADDER AND BILE DUCTS: The gallbladder appears within normal limits. No radioopaque gallstones are seen. No biliary ductal dilatation is evident. PANCREAS: Unremarkable. SPLEEN: Unremarkable. ADRENAL GLANDS: Unremarkable. KIDNEYS, URETERS, AND BLADDER: Stable minimal bilateral perinephric fat stranding, concerning for medical renal disease. There is no hydronephrosis or hydroureter. No urinary calculi are seen. Stable smooth urinary bladder wall thickening with a maximum thickness of 10 mm can be due to underdistention or cystitis. STOMACH AND BOWEL: Unremarkable appearance of the stomach and bowel. No evidence of bowel obstruction. No evidence suggesting enteritis or colitis. APPENDIX: No evidence of acute appendicitis on CT examination. PERITONEUM: No free fluid. No free air. Stable calcification in the left paracolic gutter. LYMPH NODES: No lymphadenopathy is evident. REPRODUCTIVE: Unremarkable as visualized. VASCULATURE: No evidence of abdominal aortic aneurysm. BONES: No aggressive appearing osseous lesion. No acute osseous pathology is evident. Multilevel degenerative changes in the visualized spine. Mild stable fat stranding in the left anterior abdominal wall. IMPRESSION: 1. No acute intraabdominal or pelvic findings. 2. Left minimal pleural effusion. 3. Stable minimal bilateral perinephric fat stranding, concerning for medical renal disease. 4. Stable smooth urinary bladder wall thickening (10 mm), possibly due to underdistention or cystitis. /[place] DICTATED BY: ZEKE BASS Jr., MD DATE: 07/25/251326 ELECTRONICALLY SIGNED BY: ZEKE BASS Jr., MD DATE: 07/25/251326 MDM DM MDM: Differential diagnosis: Cholecystitis, pancreatitis, cocaine abuse Rationale: Tests considered and ordered secondary to shared decision making include: Previous outside records reviewed: Old ER visits. Risk of complication and/or morbidity or mortality of patient management: None Medications-Per medication reconciliation Need for hospitalization: Patient does not meet criteria for hospitalization. Need for emergency major/minor surgery: No Patient is a gentleman coming in per patient this has been ongoing for a couple days patient was evaluated by PCP but patient states he has been a CT so he is here for further evaluation. Laboratory workup positive for cocaine. CT did disclose a possible cystitis. Antibiotics will be provided but I also counseled the patient on drug avoidance. ED Course Orders Procedure Category Date Status Time Cbc With Differential LAB 07/25/25 Complete 09:39 Comprehensive LAB 07/25/25 Complete Metabolic Panel 09:39 Troponin I High LAB 07/25/25 Complete Sensitivity 09:39 Urinalysis Profile LAB 07/25/25 Complete 09:39 12 Lead Ekg Tracing- EKG 07/25/25 Complete Technical 09:39 0.9%Nacl 1000ml (Ns PHA 07/25/25 Complete 1000ml) 10:00 Creatine Kinase, Total LAB 07/25/25 Complete 09:39 Ct Abdomen/Pelvis W/O CT 07/25/25 Resulted Contrast 09:39 Lipase LAB 07/25/25 Complete 09:39 Ondansetron 4mg Inj PHA 07/25/25 Complete (Zofran 4mg Inj) 10:00 Pantoprazole 40mg Inj PHA 07/25/25 Complete (Protonix 40mg Inj 10:00 Drug Screen Urine LAB 07/25/25 Complete 10:00 Culture Urine JEFFREY 07/25/25 In Process 10:43 Current Medications Medications (Trade) Dose Ordered Sig/Loli Route PRN Reason Start Time Stop Time Status Last Admin Dose Admin Ondansetron HCl (zoFRAN 4MG INJ) 4 mg ONCE ONCE IVP 07/25/25 10:00 07/25/25 10:01 DC 07/25/25 10:07 Pantoprazole Sodium (PROTonix 40MG INJ) 40 mg ONCE ONCE IVP 07/25/25 10:00 07/25/25 10:01 DC 07/25/25 10:07 Sodium Chloride 1,000 ml @ 0 mls/hr ONCE ONCE IV 07/25/25 10:00 07/25/25 10:01 DC 07/25/25 10:07 Vital Signs Date Time Temp Pulse Resp B/P (MAP) Pulse Ox O2 Delivery O2 Flow Rate FiO2 07/25/25 11:58 99.0 72 18 141/85 100 Room Air* 0 21 07/25/25 10:39 99.7 75 18 147/94 100 Room Air* 0 21 07/25/25 09:36 99.7 79 18 177/98 100 Room Air DX & DISP Disposition: Discharge Departure Impression: Primary Impression: Cystitis Additional Impressions: Cocaine abuse, Dehydration Condition: Stable Scripts Ciprofloxacin HCl (Cipro) 250 Mg Tablet 1 TAB PO BID for 7 Days, #14 TAB 0 Refills Prov: CORRINA KNOX MD 07/25/25 Additional Instructions: You have been reviewed in the emergency department at [facility] after presenting with chest pain. After considering your history, your risk factors, your EKG and your blood test troponins, have been found to be at very low risk less than (1 in 100) of having a major adverse cardiac event (like heart attack) in the near future. In the " low risk" group, the risks of doing further tests and treatment as the inpatient outweighs the benefits. In many patients in the low risk group for the test of any sort or unnecessary, however he should discuss this further with his general practitioner who will understand the medical and personal backgrounds better. Because we have never declared you" no risk" we would suggest. 1 returning for medical review if you have further episodes of chest pain/arm pain or other concerning symptoms like dizziness, collapse, palpitations or shortness of breath. 2. Following up with your local doctor who will consider the need for further testing and will also ensure that any modifiable risk factors you may have for heart disease are optimally managed. Patient will be discharged in stable condition at the moment discharge patient states , no chest pain Referrals: REESE PIKE MD (PCP) Time of Disposition: 12:35 CORRINA KNOX MD Jul 25, 2025 09:47
[2025-07-25 10:03] LABS: IMMATURE GRANULOCYTE ABSOLUTE 0.03 K/uL (0-1); NUCLEATED RED BLOOD CELLS 0.0 % (0.0-0.19); PLATELET COUNT (AUTO) 231 K/uL (130-400); RED BLOOD CELL COUNT(AUTO) 3.24 MIL/uL (4.50-6.20); RED CELL DISTRIBUTION WIDTH 12.6 % (11.0-15.5); WHITE BLOOD COUNT (AUTO) 6.0 K/uL (4.8-10.8)
--- NOTE | 2025-07-25 10:04 | EKG ---
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
[2025-07-25 10:05] LABS: APPEARANCE,URINE CLEAR (CLEAR); GLUCOSE, URINE (UA) >=1000 mg/dL (NEGATIVE); LEUKOCYTE ESTERASE ,URINE NEGATIVE Leu/uL (NEGATIVE); NITRATE,URINE NEGATIVE (NEGATIVE); OCCULT BLOOD,URINE MODERATE (NEGATIVE)
[2025-07-25] MEDS: 0.9%NACL 1000ML 1,000 ML IV ONE (10:07)
[2025-07-25 10:13] LABS: ADD UA MICROSCOPIC YES; CREATININE 1.8 mg/dL (0.5-1.3); GLOMERULAR FILTR. RATE CALC 44.0 mL/min (>90); GLUCOSE,RANDOM 242.0 mg/dL (70-105); SODIUM SERUM 133.0 mmol/L (136-145); UREA NITROGEN, BLOOD 18.0 mg/dL (7-18)
[2025-07-25 10:17] LABS: ASPARTATE AMINOTRANSFERASE 22.0 U/L (10-37); CREATINE KINASE, TOTAL 126.0 U/L (21-232); TOTAL PROTEIN, SERUM 6.2 g/dL (6.0-8.3)
[2025-07-25 10:41] LABS: SQUAMOUS EPITHELIAL CELL,UR RARE /HPF (0-2)
[2025-07-25 11:08] LABS: AMPHET/METH SCREEN,URINE NEGATIVE (NEGATIVE); BARBITURATE SCREEN, URINE NEGATIVE (NEGATIVE); CANNABINOID SCREEN,URINE NEGATIVE (NEGATIVE); COCAINE SCREEN,URINE POSITIVE (NEGATIVE)
--- NOTE | 2025-07-25 12:28 | HMCIMG ---
EXAM: CT Abdomen and Pelvis Without IV contrast CLINICAL HISTORY: ABD PAIN TECHNIQUE: Axial computed tomography images of the abdomen and pelvis without intravenous contrast. No sagittal or coronal reconstructions were provided. CONTRAST: No IV contrast. COMPARISON: Compared with the previous CT dated 01/10/22 FINDINGS: LUNG BASES: Left minimal pleural effusion. The right pleural space is clear. LIVER: Unremarkable. GALLBLADDER AND BILE DUCTS: The gallbladder appears within normal limits. No radioopaque gallstones are seen. No biliary ductal dilatation is evident. PANCREAS: Unremarkable. SPLEEN: Unremarkable. ADRENAL GLANDS: Unremarkable. KIDNEYS, URETERS, AND BLADDER: Stable minimal bilateral perinephric fat stranding, concerning for medical renal disease. There is no hydronephrosis or hydroureter. No urinary calculi are seen. Stable smooth urinary bladder wall thickening with a maximum thickness of 10 mm can be due to underdistention or cystitis. STOMACH AND BOWEL: Unremarkable appearance of the stomach and bowel. No evidence of bowel obstruction. No evidence suggesting enteritis or colitis. APPENDIX: No evidence of acute appendicitis on CT examination. PERITONEUM: No free fluid. No free air. Stable calcification in the left paracolic gutter. LYMPH NODES: No lymphadenopathy is evident. REPRODUCTIVE: Unremarkable as visualized. VASCULATURE: No evidence of abdominal aortic aneurysm. BONES: No aggressive appearing osseous lesion. No acute osseous pathology is evident. Multilevel degenerative changes in the visualized spine. Mild stable fat stranding in the left anterior abdominal wall. IMPRESSION: 1. No acute intraabdominal or pelvic findings. 2. Left minimal pleural effusion. 3. Stable minimal bilateral perinephric fat stranding, concerning for medical renal disease. 4. Stable smooth urinary bladder wall thickening (10 mm), possibly due to underdistention or cystitis. /[place]
[2025-07-25] MEDS ORDERED: CIPR-279 PO (12:45)
[2025-07-25 12:54] VITALS: BP 141/85; PULSE 70; RESP 18; TEMP 98.7; O2SAT 100
== END 2025-07-25 13:27 | disposition home or self-care (01) ==
LOC: EDH 09:34
DX: N30.90 Cystitis, unspecified without hematuria (principal); F14.10 Cocaine abuse, uncomplicated; E86.0 Dehydration; R11.2 Nausea with vomiting, unspecified; R42 Dizziness and giddiness; I10 Essential (primary) hypertension; Z79.899 Other long term (current) drug therapy; Z79.82 Long term (current) use of aspirin; Z79.84 Long term (current) use of oral hypoglycemic drugs; Z89.421 Acquired absence of other right toe(s)
CPT/HCPCS: 99285; 74176; 96374; 96361; 96375; 82550; 84484; 80053; 80305; 83690; 85025; 87086; 81001; 36415; 93005; J7030; J2405; J2470